=== PATIENT | female | born 1940 | race Caucasian/White ===

== ENCOUNTER 2018-10-17 06:50 | Day surgery (SDC) | payer OTHER ==
[2018-10-15 12:31] LABS: BASOPHILS % (AUTO) 0.4 % (0-1); EOSINOPHILS # (AUTO) 0.3 X10'3 (0-0.9); EOSINOPHILS % (AUTO) 4.8 % (0-6); HEMATOCRIT 44.9 % (35.0-45.0); HEMOGLOBIN 14.9 g/dl (12.0-16.0); LYMPHOCYTES # (AUTO) 1.4 X10'3 (1.1-4.8); LYMPHOCYTES % (AUTO) 23.8 % (21-51); MEAN CORPUSCULAR HGB CONC 33.2 % (33.0-36.5); MEAN CORPUSCULAR VOLUME 93.3 FL (78-98); MEAN PLATELET VOLUME 7.2 FL (7.4-10.4); MONOCYTES # (AUTO) 0.4 X10'3 (0-0.9); MONOCYTES % (AUTO) 6.3 % (2-12); NEUTROPHILS # (AUTO) 3.8 X10'3 (1.8-7.7); NEUTROPHILS % (AUTO) 64.7 % (42-75); PLATELET COUNT 257 X10'3 (140-440); RED BLOOD COUNT 4.81 X10'6 (4.20-5.60); RED CELL DISTRIBUTION WIDTH 13.9 % (11.5-14.5); WHITE BLOOD COUNT 5.8 X10'3 (4.5-11.0)
[2018-10-15 12:40] LABS: ALBUMIN 3.6 G/DL (3.4-5.0); ANION GAP 9 (8-16); BLOOD UREA NITROGEN 13 MG/DL (7-18); BUN/CREATININE RATIO 14.1 (6.6-38.0); CALCIUM 9.4 MG/DL (8.5-10.1); CHLORIDE 105 MMOL/L (99-107); CREATININE 0.92 MG/DL (0.40-0.90); GLUCOSE 108 MG/DL (70-104); POTASSIUM 4.3 MMOL/L (3.5-5.1); SODIUM 142 MMOL/L (135-145); TOTAL CARBON DIOXIDE 28.4 MMOL/L (24-32); eGFR 59 ML/MIN
[2018-10-15 12:57] LABS: INR 1.5 INR; PARTIAL THROMBOPLASTIN TIME 34 SECONDS (22-32); PROTHROMBIN TIME 14.7 SECONDS (9.0-12.0)
[2018-10-17] VITALS (9 sets, daily range): BP systolic 115–158; BP diastolic 48–85
[~2018-10-17] VITALS: Ht 177.8 cm; Wt 129.9 kg
[~2018-10-17 06:50] MED LIST: AMIO200T40 PO; CARV6.253 PO; CITA-278 PO; ESOM20CA PO; FURO40TA4 PO; GABA-338 PO; LEVO150T62 PO; LISI10TA4 PO; LOVA20TA2 PO; MAGN400C PO; NORCO10T PO; POTA20TA19 PO; oxygen
[2018-10-17] MEDS ORDERED: ceFAZolin 2gm in dextrose, iso 100 ML IV ONE (07:11)
[2018-10-17] MEDS ORDERED: normal saline 1000ml 1,000 ML IV SCH (07:15)
[2018-10-17] MEDS ORDERED: FLUT16SP2 BOTHNARES (07:28)
[2018-10-17] MEDS ORDERED: WARF5TAB PO (07:28)
[2018-10-17] MEDS ORDERED: MAGN400C PO (07:28)
[2018-10-17] MEDS ORDERED: CALC-1050 PO (07:28)
[2018-10-17] MEDS ORDERED: MULT1TAB74 PO (07:28)
[2018-10-17] MEDS ORDERED: [UNRECOGNIZED DRUG - CODE] PO (07:28)
[2018-10-17] MEDS ORDERED: POTA10CA44 PO (07:28)
[2018-10-17] MEDS ORDERED: CHOL500049 PO (07:30)
[2018-10-17] MEDS ORDERED: DULO20CA50 PO (07:30)
[2018-10-17] MEDS ORDERED: fentaNYL/PF 50MCG/1 ML 2ML syringe ONE (09:15)
[2018-10-17] MEDS ORDERED: midazolam 2 mg/2 ml injection ONE (09:15)
[2018-10-17] MEDS ORDERED: ceFAZolin 1000mg inj ONE (09:15)
[2018-10-17] MEDS ORDERED: cefazolin/dext.iso 2gm/50ml 50 ML IV ONE (09:16)
[2018-10-17] MEDS ORDERED: lidocaine 1%/epinephrine 1:100,000 injection 50ml vial ONE (09:16)
== END 2018-10-17 16:10 | disposition home or self-care (01) ==
LOC: SSTAY O 06:50
PROVIDERS: ATTEND Internal Medicine Cardiovascular Disease
DX: Z45.02 Encounter for adjustment and management of automatic implantable cardiac defibrillator (principal); I49.5 Sick sinus syndrome; I42.0 Dilated cardiomyopathy; I47.2 Ventricular tachycardia; E78.5 Hyperlipidemia, unspecified; G47.33 Obstructive sleep apnea (adult) (pediatric); E66.9 Obesity, unspecified; I48.0 Paroxysmal atrial fibrillation; I25.10 Atherosclerotic heart disease of native coronary artery without angina pectoris; K21.9 Gastro-esophageal reflux disease without esophagitis; E03.9 Hypothyroidism, unspecified; F41.8 Other specified anxiety disorders; F32.9 Major depressive disorder, single episode, unspecified; M19.90 Unspecified osteoarthritis, unspecified site; I07.1 Rheumatic tricuspid insufficiency; I05.9 Rheumatic mitral valve disease, unspecified; I11.0 Hypertensive heart disease with heart failure; I50.20 Unspecified systolic (congestive) heart failure; I49.8 Other specified cardiac arrhythmias; J45.998 Other asthma; M47.819 Spondylosis without myelopathy or radiculopathy, site unspecified; M41.80 Other forms of scoliosis, site unspecified; Z87.19 Personal history of other diseases of the digestive system; Z79.01 Long term (current) use of anticoagulants; Z79.891 Long term (current) use of opiate analgesic; Z90.89 Acquired absence of other organs; Z90.49 Acquired absence of other specified parts of digestive tract; Z88.5 Allergy status to narcotic agent; Z87.891 Personal history of nicotine dependence; Z87.01 Personal history of pneumonia (recurrent); Z96.653 Presence of artificial knee joint, bilateral; Z86.2 Personal history of diseases of the blood and blood-forming organs and certain disorders involving the immune mechanism; Z98.51 Tubal ligation status; Z85.820 Personal history of malignant melanoma of skin; Z98.890 Other specified postprocedural states; Z79.899 Other long term (current) drug therapy; Z82.3 Family history of stroke; Z82.49 Family history of ischemic heart disease and other diseases of the circulatory system; Z80.7 Family history of other malignant neoplasms of lymphoid, hematopoietic and related tissues; Z68.41 Body mass index [BMI] 40.0-44.9, adult
CPT/HCPCS: 33264; 36415; 80048; 85025; 85610; 85730; 93005; 99152; 99153; C1882; J0690; J2250; J3010; J3490; J7030; A4620